=== PATIENT | female | born 1925 | race Caucasian/White ===

== ENCOUNTER → 2017-01-21 | Outpatient (CLI) | payer OTHER ==
[~2017-01-21] MED LIST: AMLO10TA2 PO; ASCO500T11 GT; ASPI-378 PO; CALC600T57 PO; CHOL20009 PO; CLOP75TA28 PO; HYDR25TA4 PO; LOVA40TA72 PO; METO25TA5 PO; [UNRECOGNIZED DRUG - CODE] SL
[2017-01-21 09:12] LABS: Basophils # (auto) 0 uL; Basophils % (auto) 0.6 % (0.0-2.0); Eosinophils # (auto) 0.1 uL; Eosinophils % (auto) 1.8 % (0.0-7.0); Hematocrit 47.5 % (36.0-46.0); Hemoglobin 15.7 g/dL (12.2-16.2); Lymphocytes # (auto) 1.1 uL; Lymphocytes % (auto) 19.9 % (10.0-50.0); Mean Corpuscular Hemoglobin 31.3 pg (28.0-32.0); Mean Corpuscular Hgb Conc. 33.1 g/dL (32.0-36.0); Mean Corpuscular Volume 94.4 fL (80.0-100.0); Mean Platelet Volume 8.9 fL (6.9-10.8); Monocytes # (auto) 0.5 uL; Monocytes % (auto) 9.1 % (0.0-12.0); Neutrophils # (auto) 3.8 uL; Neutrophils % (auto) 68.6 % (37.0-80.0); Platelet Count (auto) 184 10^3/uL (140-450); Red Cell Distribution Width 13.7 % (11.8-14.3); White Blood Cell 5.5 10^3/uL (4.4-10.8)
[2017-01-21 09:15] LABS: Urine Bilirubin Negative (Negative); Urine Blood Negative /uL (Negative); Urine Color Yellow (Yellow); Urine Glucose Normal (Normal); Urine Ketone Negative (Negative); Urine Nitrite Negative (Negative); Urine RBC <1 /hpf (0 - 4); Urine Urobilinogen Normal (Negative)
[2017-01-21 09:43] LABS: Albumin 3.6 g/dL (3.4-5.0); BUN/Creatinine Ratio 28.2; Bilirubin, Total 0.7 mg/dL (0.2-1.0); Calcium 9.2 mg/dL (8.5-10.1); Potassium 3.4 mmol/L (3.5-5.1); Total Protein 7.6 g/dL (6.4-8.2)
== END | disposition home or self-care (01) ==
LOC: LAB 08:47
PROVIDERS: ATTEND Family Medicine
DX: I10 Essential (primary) hypertension (principal); E78.5 Hyperlipidemia, unspecified
CPT/HCPCS: 36415; 80053; 80061; 81001; 85025